=== PATIENT | male | born 1995 ===

== ENCOUNTER 2017-06-25 22:11 | Emergency (ER) | payer OTHER ==
[2017-06-25 22:18] VITALS: BP 144/61; PULSE 96; RESP 16; TEMP 98.4; O2SAT 99
--- NOTE | 2017-06-25 22:37 | ED PDOC ---
HPI: General Adult Time Seen by Provider: 06/25/17 22:17 Chief Complaint (Nursing): ENT Problem Chief Complaint (Provider): Nose pain, defomity History Per: Patient History/Exam Limitations: no limitations Onset/Duration Of Symptoms: Mins Have you had recent travel within the past 21 days to any of the following countries: [place], [place], [place] or [place]?: No Current Symptoms Are (Timing): Still Present Severity: Mild Additional Complaint(s): Pt states he was playing football and was hit in the nose. Pt reports deformity and swelling. Pt has bloody nose which resolved spontaneously. No LOC. Past Medical History Reviewed: Historical Data, Nursing Documentation, Vital Signs Vital Signs: Last Vital Signs Temp 98.4 F 06/25/17 22:15 Pulse 96 H 06/25/17 22:15 Resp 16 06/25/17 22:15 BP 144/61 06/25/17 22:15 Pulse Ox 99 06/25/17 22:15 - Medical History PMH: No Chronic Diseases - Surgical History Surgical History: No Surg Hx - Family History Family History: States: No Known Family Hx - Living Arrangements Living Arrangements: With Family - Allergies Allergies/Adverse Reactions: Allergies Allergy/AdvReac Type Severity Reaction Status Date / Time No Known Allergies Allergy Verified 06/25/17 22:15 Review of Systems Constitutional: Negative for: Fever, Chills ENT: Positive for: Nose Pain Physical Exam - Reviewed Nursing Documentation Reviewed: Yes Vital Signs Reviewed: Yes - Physical Exam Appears: Positive for: Well, Non-toxic, No Acute Distress Head Exam: Positive for: ATRAUMATIC, NORMAL INSPECTION, NORMOCEPHALIC Skin: Positive for: Normal Color, Warm, DRY Eye Exam: Positive for: Normal appearance ENT: Positive for: Other (Slight deformity of nose, (-) Septal hematoma ). Negative for: Normal ENT Inspection Neck: Positive for: Normal, Painless ROM Respiratory: Negative for: Accessory Muscle Use, Respiratory Distress Back: Positive for: Normal Inspection Extremity: Positive for: Normal ROM Neurologic/Psych: Positive for: Alert, Oriented, Mood/Affect, Cerebellar Tests, Gait. Negative for: Aphasia - ECG O2 Sat by Pulse Oximetry: 99 Disposition - Clinical Impression Clinical Impression: Nasal injury - Patient ED Disposition Is Patient to be Admitted: No Counseled Patient/Family Regarding: Diagnosis, Need For Followup - Disposition Referrals: Nikolay Stephens MD [Staff Provider] - Dale Art MD [Staff Provider] - Disposition: Routine/Home Disposition Time: 22:35 Condition: GOOD Instructions: Nasal Fracture (ED)
== END 2017-06-25 22:54 | disposition home or self-care (01) ==
LOC: H.ER 22:11
DX: S09.92XA Unspecified injury of nose, initial encounter (principal); W22.8XXA Striking against or struck by other objects, initial encounter; Y92.321 Football field as the place of occurrence of the external cause

== ENCOUNTER 2018-02-21 15:42 | Emergency (ER) | payer OTHER ==
[2018-02-21 15:48] VITALS: BMI 27.1
--- NOTE | 2018-02-21 17:26 | ED PDOC ---
HPI: General Adult Time Seen by Provider: 02/21/18 16:18 Chief Complaint (Nursing): ENT Problem Chief Complaint (Provider): Nose injury History Per: Patient History/Exam Limitations: no limitations Current Symptoms Are (Timing): Still Present Additional Complaint(s): 22 year old male presents to ED for evaluation of a nose injury while patient was playing basketball just [employer]. Patient states he collided heads with another player. Patient indicates having no pain at present. He also reports having a history of a deviated septum. He denied taking any medications [employer]. PMD: none provided Past Medical History Reviewed: Historical Data, Nursing Documentation, Vital Signs Vital Signs: Last Vital Signs Temp 98 F 02/21/18 18:20 Pulse 78 02/21/18 18:20 Resp 18 02/21/18 18:20 BP 110/78 02/21/18 18:20 Pulse Ox 100 02/21/18 18:20 - Medical History Other PMH: Deviated septum - Surgical History Surgical History: No Surg Hx - Family History Family History: States: Unknown Family Hx - Social History Current smoker - smoking cessation education provided: No Alcohol: None Drugs: Denies - Allergies Allergies/Adverse Reactions: Allergies Allergy/AdvReac Type Severity Reaction Status Date / Time No Known Allergies Allergy Verified 02/21/18 17:39 Review of Systems ROS Statement: Except As Marked, All Systems Reviewed And Found Negative ENT: Positive for: Other (Nose injury) Physical Exam - Reviewed Nursing Documentation Reviewed: Yes Vital Signs Reviewed: Yes - Physical Exam Comments: GENERAL APPEARANCE: Patient is awake, alert, oriented x 3, in no acute distress. SKIN: Warm, dry; (-) cyanosis. NECK: supple, FROM (-) tenderness EYES: EOMI and painless. Pupils equal and reactive. (-) periorbital swelling or tenderness NOSE: Mild deviation of nasal septum to the left. (-)Dried blood to the nares. ( -) tenderness, (-) swelling, (-) ecchymosis (-) skin break. TMs (-) bulging (-) erythema (-) hemotympanum. CHEST AND RESPIRATORY: (-) rales, (-) rhonchi, (-) wheezes; breath sounds equal bilaterally. Speaking in full sentences, respirations even and nonlabored. HEART AND CARDIOVASCULAR: (-) irregularity; (-) murmur, (-) gallop. NEURO AND PSYCH: Mental status as above. Gait steady, speech clear. - ECG O2 Sat by Pulse Oximetry: 98 (RA) Pulse Ox Interpretation: Normal Medical Decision Making Medical Decision Making: Initial Impression: Nasal injury Initial Plan: X-ray Nasal bones 1800 XR reviewed, no acute fracture noted. On re-evaluation, patient offers no additional complaints. On exam, patient remains AAOx3, in no acute distress. On exam, neck is supple, lungs CTA, cardiac RRR, neuro exam shows no focal findings. Vitals stable, stable for discharge. Diagnostic results d/w the patient in great detail. Dx of nasal injury/ contusion d/w the patient. Based on history, exam and diagnostic results plan will be for discharge and outpatient ENT follow up. Advised to follow up with primary care physician/ referred ENT in 1-2 days without fail. Return to the emergency room at any time for any new or worsening symptoms. Patient states he fully agrees with and understands discharge instructions. States that he agrees with the plan and disposition. Verbalized and repeated discharge instructions and plan. I have given the patient opportunity to ask any additional questions. Scribe Attestation: Documented by Des Crum acting as a scribe for Zehra HERRERA. Provider Scribe Attestation: All medical record entries made by the Scribe were at my direction and personally dictated by me. I have reviewed the chart and agree that the record accurately reflects my personal performance of the history, physical exam, medical decision making, and the department course for this patient. I have also personally directed, reviewed, and agree with the discharge instructions and disposition. Disposition - Clinical Impression Clinical Impression: Nasal injury - Patient ED Disposition Is Patient to be Admitted: No Counseled Patient/Family Regarding: Studies Performed, Diagnosis, Need For Followup, Rx Given - Disposition Referrals: Zack Bender MD [Staff Provider] - Disposition: Routine/Home Disposition Time: 17:59 Condition: STABLE Additional Instructions: FOLLOW UP WITH PMD/ENT IN 1-2 DAYS. RETURN TO ED WITH ANY NEW OR WORSENING SYMPTOMS. Instructions: Taking Care of Bruises, Closed Head Injury Forms: [employer] (German) Print Language: MALAGASY - POA Present On Arrival: Falls Or Trauma
[2018-02-22 00:51] VITALS: BP 110/78; PULSE 78; RESP 18; TEMP 98
--- NOTE | 2018-02-22 09:41 | RAD ---
PROCEDURE: Radiographs of Nasal Bones HISTORY: s/p trauma COMPARISON: None available. TECHNIQUE: Frontal and lateral radiographs of the nasal bones. FINDINGS: No fracture of nasal bones visualized. No destructive lesion. IMPRESSION: No evidence of acute displaced fracture.
[2018-02-23 13:05] VITALS: O2SAT 98
== END 2018-02-21 18:20 | disposition home or self-care (01) ==
LOC: H.ER 15:42
DX: S09.92XA Unspecified injury of nose, initial encounter (principal); J34.2 Deviated nasal septum; Y93.67 Activity, basketball